=== PATIENT | female | born 1980 | race Caucasian/White ===

== ENCOUNTER 2017-07-20 10:58 | Observation (INO) | payer MEDICAID ==
[~2017-07-20] VITALS: Ht 175.3 cm; Wt 54.0 kg
[~2017-07-20 10:58] MED LIST: bactrim
[2017-07-20] MEDS ORDERED: SODIUM CHLORIDE 0.9% 1,000 ML IVB ONE (11:27)
[2017-07-20 11:51] LABS: Basophils # (auto) 0.1 uL; Basophils % (auto) 0.8 % (0.0-2.0); Eosinophils # (auto) 0 uL; Eosinophils % (auto) 0.1 % (0.0-7.0); Hematocrit 44.4 % (36.0-46.0); Hemoglobin 15.1 g/dL (12.2-16.2); Lymphocytes # (auto) 1.1 uL; Lymphocytes % (auto) 11.4 % (10.0-50.0); Mean Corpuscular Hemoglobin 30.9 pg (28.0-32.0); Mean Corpuscular Hgb Conc. 33.9 g/dL (32.0-36.0); Mean Corpuscular Volume 91.1 fL (80.0-100.0); Mean Platelet Volume 7.1 fL (6.9-10.8); Monocytes # (auto) 0.6 uL; Neutrophils # (auto) 7.6 uL; Neutrophils % (auto) 81.7 % (37.0-80.0); Platelet Count (auto) 254 10^3/uL (140-450); Red Cell Distribution Width 14.4 % (11.8-14.3); White Blood Cell 9.3 10^3/uL (4.4-10.8)
[2017-07-20 12:04] LABS: Acetaminophen < 2.0 ug/mL (10-30); Salicylate < 1.7 mg/dL (2.8-20.0)
[2017-07-20 12:12] LABS: Albumin 4.2 g/dL (3.4-5.0); Alkaline Phosphatase 37 U/L (45-117); Anion Gap 10 (5-15); Aspartate Aminotransferase 18 U/L (15-37); BUN/Creatinine Ratio 19.7; Blood Urea Nitrogen 13 mg/dL (7-18); Calcium 8.7 mg/dL (8.5-10.1); Carbon Dioxide 25 mmol/L (21-32); Chloride 106 mmol/L (98-107); GFR African American 128 mL/min; GFR Non-African American 106 mL/min; Glucose 103 mg/dL (74-106); Sodium 141 mmol/L (136-145); Total Protein 8.5 g/dL (6.4-8.2)
[2017-07-20 13:23] LABS: Urine Bilirubin Negative (Negative); Urine Blood Negative /uL (Negative); Urine Color Yellow (Yellow); Urine Glucose Normal (Normal); Urine Ketone 1+ (Negative); Urine Nitrite Negative (Negative); Urine RBC 2 /hpf (0 - 4); Urine Squamous Epithelial Cell FEW /hpf (<5); Urine Urobilinogen Normal (Negative); Urine pH 7.5 (5.0-8.0)
[2017-07-21 01:20] LABS: BUN/Creatinine Ratio 26.4; Calcium 8.7 mg/dL (8.5-10.1); Potassium 3.6 mmol/L (3.5-5.1)
[2017-07-21] MEDS ORDERED: ACETAMINOPHEN 325 MG TAB PO PRN (07:45)
[2017-07-21] MEDS ORDERED: SERTRALINE HCL 50 MG TAB PO ONE (12:15)
[2017-07-21 15:38] VITALS: BP 125/85
[2017-07-22] MEDS ORDERED: SERTRALINE HCL 50 MG TAB PO SCH (10:00)
== END 2017-07-21 16:59 | disposition home or self-care (01) | DRG 812 ==
LOC: EDBD 10:58 → ER 10:58 → OVERFLOW 11:28 → ER 07-21 16:59
PROVIDERS: ADMIT Family Medicine; ATTEND Family Medicine
DX: T39.392A Poisoning by other nonsteroidal anti-inflammatory drugs [NSAID], intentional self-harm, initial encounter (principal); F32.9 Major depressive disorder, single episode, unspecified; F41.9 Anxiety disorder, unspecified; Y92.89 Other specified places as the place of occurrence of the external cause
CPT/HCPCS: 36415; 71010; 80048; 80053; 80307; 80320; 80329; 81001; 81025; 83735; 85025; 99285; G0378

== ENCOUNTER 2018-02-12 13:44 | Emergency (ER) | payer MEDICAID ==
[~2018-02-12] VITALS: Ht 175.3 cm; Wt 68.0 kg
[2018-02-12 14:07] VITALS: BP 121/78
[2018-02-12] MEDS ORDERED: SILVER SULFADIAZINE 1 % TOPICAL CREAM 50GM TOP ONE (14:30)
[2018-02-12] MEDS ORDERED: KETOROLAC TROMETH 60MG/2ML VIAL IM ONE (14:30)
== END 2018-02-12 15:42 | disposition home or self-care (01) ==
LOC: EDBD 13:44 → ER 13:44
DX: S46.911A Strain of unspecified muscle, fascia and tendon at shoulder and upper arm level, right arm, initial encounter (principal); S93.601A Unspecified sprain of right foot, initial encounter; Z88.2 Allergy status to sulfonamides; T22.122A Burn of first degree of left elbow, initial encounter; V43.52XA Car driver injured in collision with other type car in traffic accident, initial encounter; Y93.89 Activity, other specified; Y99.8 Other external cause status; Y92.410 Unspecified street and highway as the place of occurrence of the external cause
CPT/HCPCS: 73030; 73630; 96372; 99284; J1885

== ENCOUNTER 2022-07-25 18:53 | Emergency (ER) | payer MEDICAID, OTHER ==
[~2022-07-25] VITALS: Ht 165.1 cm; Wt 172.0 kg
[2022-07-25] MEDS ORDERED: ONDANSETRON ODT 4 MG TAB PO ONE (23:15)
[2022-07-25] MEDS ORDERED: OXYCODONE W/ ACETAMINOPHEN 5/325MG TABLET PO ONE (23:15)
[2022-07-26 05:22] VITALS: BP 145/90
== END 2022-07-26 05:25 | disposition home or self-care (01) ==
LOC: EDBD 18:53 → ER 18:53
DX: S66.912A Strain of unspecified muscle, fascia and tendon at wrist and hand level, left hand, initial encounter (principal); G44.309 Post-traumatic headache, unspecified, not intractable; F41.9 Anxiety disorder, unspecified; F32.9 Major depressive disorder, single episode, unspecified; F10.90 Alcohol use, unspecified, uncomplicated; Z98.51 Tubal ligation status; Z98.890 Other specified postprocedural states; Z88.2 Allergy status to sulfonamides; V89.0XXA Person injured in unspecified motor-vehicle accident, nontraffic, initial encounter; Y93.89 Activity, other specified; Y92.410 Unspecified street and highway as the place of occurrence of the external cause; Y99.8 Other external cause status
CPT/HCPCS: 70450; 71250; 72125; 73110; 74176; 99285; Q0162